=== PATIENT | female | born 1995 | race Caucasian/White ===

== ENCOUNTER 2021-07-12 15:05 | Inpatient (IN) | payer MEDICAID, SELFPAY ==
[2021-07-12] VITALS (14 sets, daily range): BP systolic 129–161; BP diastolic 75–99; PULSE 80–102; TEMP 36.7–37.2; O2SAT 98; BMI 30.9
[2021-07-12 16:12] LABS: Absolute Lymphocyte Count 0.98 X10^3/uL (0.83-4.51); Basophil# 0.04 X10^3/uL; Basophil% 0.4 % (0-1); Eosinophil# 0.03 X10^3/uL; Eosinophils% 0.3 % (0-5); Hematocrit 36.5 % (37-47); Hemoglobin 12.3 g/dL (12.0-15.0); Lymphocyte # 0.98 X10^3/ul (0.83-4.51); Mean Corp Hgb Conc 33.7 g/dL (32-36); Mean Corpuscular Hgb 29.9 pg (27.0-32.0); Mean Corpuscular Volume 88.6 fL (81-99); Mean Platelet Vol. 10.6 fl (6.2-12.0); Monocyte# 0.67 X10^3/uL; Monocyte% 7.5 % (0-10); NRBC Flagged by Analyzer 0 % (0-5); Neutrophil # 7.04 X10^3/uL (2.7-7.7); Neutrophil % 79.1 % (47-70); Platelet Count 223 K/mm3 (150-450); RBC Distribution Width CV 14.2 % (11.6-14.6); RBC Distribution Width SD 46.1 fl (35.1-43.9); Red Blood Count 4.12 M/mm3 (4.2-5.4); White Blood Count 8.9 K/mm3 (4.4-11.0)
[2021-07-12 16:44] LABS: Protein:Creat Ratio 1721 mg/g CRE (0-200)
[2021-07-12] MEDS: 0.9% Saline Lock 10 ML Syringe IV (16:46)
[2021-07-12] MEDS: Lactated Ringers 1,000 ML 50 ML IV (16:46)
[2021-07-12] MEDS: 0.9% Normal Saline Single 100 ML IV.SOLN. INTRA-UTER (17:13)
--- NOTE | 2021-07-12 17:16 | HP.PCM.OB_ITS ---
HPI - General General Date of Admission: 07/12/21 HPI Narrative KATHRIN SERVIN, is a 26 F who presents at 39w1d . Presented to office today for routine visit. BP mildly elevated at 130/95 and decision for IOL today. Asymptomatic, no signs of preeclampsia. OB history otherwise uncomplicated. Maternal Data Information ARTURO Calculator Estimated Delivery Date Method Current WG Current Estimate 07/18/21 Manual 39w 1d PFSH PFSH Home Medications ferrous sulfate 65 mg PO BID 07/12/21 [History Last Taken 07/11/21] [id number] [] 1 tab PO DAILY 07/12/21 [History Last Taken 07/11/21] Allergy/AdvReac Type Severity Reaction Status Date / Time Sulfa (Sulfonamide Allergy Hives Verified 07/12/21 15:35 Antibiotics) Social History Smoking Status: Never smoker History Elective abortions Hx Para 0 Spontaneous abortions Hx # Term Pregnancies Ectopic pregnancies Hx # Pregnancies Multiple births # of living children NST FHR Rate Baby A Baseline: 135 Variability:: Moderate Accelerations:: 15 x 15 Decelerations:: None FHR Category:: Category I Uterine Activity:: Irregular, mild ROS Constitutional Constitutional: Reports systems reviewed and no addt'l complaints, except as documented; Denies headache(s) Eyes Eyes: Denies acute decrease in peripheral vision, blurry vision or change in vision ENT HEENT: Reports systems reviewed and no addt'l complaints, except as documented Cardiovascular Cardiovascular: Denies chest pain or dizziness Respiratory/Chest Respiratory/Chest: Denies cough, dyspnea, dyspnea on exertion, shortness of breath at rest or shortness of breath with exertion Gastrointestinal Gastrointestinal: Denies abdominal pain, diarrhea, nausea or vomiting Genitourinary Genitourinary: Denies abdominal discomfort or movement Musculoskeletal Musculoskeletal: Denies limited range of motion Integumentary Integumentary: Reports systems reviewed and no addt'l complaints, except as documented Neurologic Neurologic: Reports systems reviewed and no addt'l complaints, except as documented Psychiatric Psychiatric: Reports systems reviewed and no addt'l complaints, except as documented Endocrine Endocrinology: Reports systems reviewed and no addt'l complaints, except as documented Hematologic/Lymphatic Hematologic/Lymphatic: Reports systems reviewed and no addt'l complaints, except as documented Allergic/Immunologic Allergic/Immunologic: Reports systems reviewed and no addt'l complaints, except as documented Vital Signs Vital Signs Vital Signs: 07/12/21 15:30 07/12/21 15:47 07/12/21 16:01 Temperature 98.2 F Pulse Rate 95 102 H 97 Blood Pressure 161/96 H 161/99 H 144/94 H BP Systolic 161 161 144 BP Diastolic 96 99 94 07/12/21 16:23 Temperature Pulse Rate 99 Blood Pressure 140/92 H BP Systolic 140 BP Diastolic 92 Weight Weight: 163 lb 9.328 oz Body Mass Index (BMI) 30.9 Physical Exam Const alert and oriented x3 General Appearance: cooperative Orientation / Consciousness: awake, oriented to person, oriented to place and oriented to time Exam Limitations: no limitations HEENT normocephalic Head and Scalp: normal to inspection, normocephalic and atraumatic Face and Sinus: normal facial exam Eyes General Eye: normal appearance of both eyes Neck full ROM Chest Chest: symmetrical chest wall rise Resp normal respiratory effort and normal air movement Auscultation: clear to auscultation bilaterally Cardio regular rate, regular rhythm, S1 normal heart sound, S2 normal heart sound, no m urmurs, no rub, no gallops and no clicks GI normal to inspection, nondistended, normoactive bowel sounds and non-tender appearance of the vagina normal Bladder / Kidney Exam: no CVA tenderness Manual OB Exam: estimated gestational size appropriate, presentation cephalic, dilated 1cm, effaced 50 and station -2 Back/Spine normal ROM Extremity normal to inspection and full ROM Skin no rashes or lesions noted Neuro oriented x3, CN's II-XII intact bilaterally and moves all extremities Sensorium / Orientation: awake, alert and oriented to person Motor Exam: clonus absent Deep Tendon Reflexes: Rt Patellar (L4): 2+ and Lt Patellar (L4): 2+ Labs Labs Labs: Blood Type Pending Antibody Screen Pending Hct 36.5 % (37-47) L Hgb 12.3 g/dL (12.0-15.0) GBS positive HIV negative RPR negative HepC negative HBsAG negative A negative, antibody screen negative GC/CT negative Urine tox negative
[2021-07-12 17:42] LABS: ALB/GLOB Ratio 0.5 RATIO (0.9-2.4); AST(SGOT) 22 U/L (15-37); Alanine Aminotransfer ALT/SGPT 26 U/L (13-56); Albumin, Serum 2.4 g/dL (3.2-5.0); Alkaline Phosphatase 142 U/L (45-117); Anion Gap 8 (5-15); BUN 10 mg/dL (7-18); BUN/Creat Ratio 16.7 RATIO (10-20); Calcium,Total 8.8 mg/dL (8.5-10.1); Chloride 108 mmol/L (98-107); EST Glomerular Filtration Rate 129 mL/min (>60); Est Glom Filt Rate - Afr Amer 156 mL/min (>60); Estimated Creatinine Clearance 107.22 ml/min; Globulin 4.6 g/dL (2.2-4.2); Glucose 88 mg/dL (74-106); LDH 195 U/L (84-246); Potassium 3.9 mmol/L (3.5-5.1); Sodium Level 138 mmol/L (136-145); Uric Acid 5.6 mg/dL (2.6-6.0)
[2021-07-12] MEDS: Oxytocin 30 units/NS 500 ml 30 UNITS/500 ML IV.SOLN IV (18:34)
[2021-07-12] MEDS: Penicillin G 3,000,000 Units 50 ML 100 UNITS IV (21:17)
[2021-07-12] MEDS: Lactated Ringers 500 ML 999 ML IV (23:28)
[2021-07-13] VITALS (97 sets, daily range): BP systolic 108–174; BP diastolic 58–102; PULSE 73–112; RESP 16–18; TEMP 36.6–37.4; O2SAT 79–100
[2021-07-13] MEDS: Lactated Ringers 500 ML 999 ML IV ×2 (00:21→02:34)
[2021-07-13] MEDS: Penicillin G 3,000,000 Units 50 ML 100 UNITS IV ×2 (00:59→05:05)
[2021-07-13] MEDS: fentaNYL-bupivacaine (epidural) 100 ML BAG EPIDURAL ×4 (02:11→16:38)
[2021-07-13] MEDS: Mag Hydrox/Al Hydrox/Simeth 30 ML UDC PO ×2 (03:19→19:04)
[2021-07-13] MEDS: Lactated Ringers 1,000 ML 200 ML IV ×3 (04:14→16:37)
[2021-07-13] MEDS: Acetaminophen 500 MG Tablet PO ×3 (07:27→20:53)
[2021-07-13] MEDS: Ondansetron 4 MG/2 ML Vial IV ×3 (08:26→20:24)
--- NOTE | 2021-07-13 08:42 | PCM.PN.OB ---
Subjective Subjective Patient comfortable with epidural Objective Data Objective Data Vital Signs: Vital Signs Temp Pulse BP Pulse Ox 98.8 F 84 129/85 H 96 07/13/21 07:30 07/13/21 08:22 07/13/21 08:22 07/13/21 08:22 Weight: 163 lb 9.328 oz Body Mass Index (BMI) 30.9 Intake & Output: Intake and Output for Last 24 Hours 07/11/21 07/12/21 07/13/21 23:59 23:59 23:59 Intake Total 689.04 / 689.04 2099.93 / 2099.93 Output Total 800 / 800 Balance 689.04 / 689.04 1299.93 / 1299.93 Lab / Micro Data Result Diagrams: 07/12/21 15:45 07/12/21 17:10 Labs: Laboratory Results - last 24 hr 07/12/21 15:45: WBC 8.9, RBC 4.12 L, Hgb 12.3, Hct 36.5 L, MCV 88.6, MCH 29.9, MCHC 33.7, RDW Std Deviation 46.1 H, RDW Coeff of Virgen 14.2, Plt Count 223, MPV 10.6, Immature Gran % (Auto) 1.700 H, Neut % (Auto) 79.1 H, Lymph % (Auto) 11.0 L, [place] % (Auto) 7.5, Eos % (Auto) 0.3, Baso % (Auto) 0.4, Absolute Neuts (auto) 7.0, Absolute Lymphs (auto) 0.98, Nucleated RBC % 0 07/12/21 15:45: Blood Type A NEGATIVE, Antibody Screen POSITIVE H, Antibody Identification ANTI-D 07/12/21 16:15: U Random Total Protein 69.0 H, Urine Creatinine 40.10, Protein/Creatinin Ratio 1721 H 07/12/21 17:10: Sodium 138, Potassium 3.9, Chloride 108 H, Carbon Dioxide 22.0, Anion Gap 8, BUN 10, Creatinine 0.60, Estim Creat Clear Calc 107.22, Est GFR (MDRD) Af Amer 156, Est GFR (MDRD) Non-Af 129, BUN/Creatinine Ratio 16.7, Glucose 88, Uric Acid 5.6, Calcium 8.8, Total Bilirubin 0.20, AST 22, ALT 26, Alkaline Phosphatase 142 H, Lactate Dehydrogenase 195, Total Protein 7.0, Albumin 2.4 L, Globulin 4.6 H, Albumin/Globulin Ratio 0.5 L Micro: Microbiology 07/12/21 16:05 Nasal Secretion SARS-CoV-2 Antigen (Rapid) - Final Physical Exam Narrative: Cvx - 3.5/80/-2 NST FHR Rate Baby A Baseline: 135 Variability:: Moderate Accelerations:: 15 x 15 Decelerations:: Variable Uterine Activity:: Q 2-3 minutes Assessment & Plan (1) Pre-eclampsia: QUALIFIERS: Trimester: third trimester Qualified Code(s): O14.93 - Unspecified pre-eclampsia, third trimester PLAN: Mild preeclampsia - BP's remain normal. Continue observation. AROM clear fluid. IUPC placed. Continue pitocin.
[2021-07-13] MEDS: Penicillin G 3,000,000 Units 50 ML 50 UNITS IV (08:58)
[2021-07-13] MEDS: Penicillin G 3,000,000 Units 50 ML 75 UNITS IV ×2 (12:53→16:38)
--- NOTE | 2021-07-13 19:38 | EX.PCM.OBRPT ---
Maternal Data Information ARTURO Calculator Estimated Delivery Date Method Current WG Current Estimate 07/18/21 Manual 39w 2d Vaginal Delivery Maternal Presentation Maternal Presentation: Medically Indicated Induction Type of Induction: Pitocin, Johnson Bulb and Amniotomy Medical Reason for Induction: Preeclampsia, eclampsia Operative Information Date of Procedure: 07/13/21 Pre-Operative Diagnosis: Severe preeclampsia Post-Operative Diagnosis: Same Surgery / Procedure Performed: Spontaneous Vaginal Delivery Type of Anesthesia: Epidural Drain: Johnson to straight drain Estimated Blood Loss: 500ml Findings Description of Procedure: Patient prepped & draped when C/C/+2. She pushed well to deliver the head. head gently guided to allow delivery of anterior and posterior shoulders. No excess traction placed on head. Body delivered and 3VC clamped & cut in delayed fashion. Placenta delivered with gentle traction and good uterine tone obtained. Presentation: ASHLYN Amniotic Membrane Rupture Type: Artificial Amniotic Fluid Description: Lightly stained meconium Placental Delivery Description: Expressed Placenta Disposition: [facility] Specimen(s) Removed: Placenta Cord Vessel Description: 3 Vessels Cord Entanglement: None Infant A Gender: Female ([facility]) (1 minute): 8 (5 minute): 9 Delayed Cord Clamping: Yes Post Vaginal Delivery Medications Given After Delivery: IV Pitocin and - (Rectal cytotec) Episiotomy Description: None Laceration: 2nd degree (perineal - repaired with 3-0 vicryl) Complication Complications: None
[2021-07-13] MEDS: Magnesium Sulfate 4gm/100mL 4 GM/100 ML IV.SOLN. IV (20:10)
[2021-07-13] MEDS: Magnesium Sulfate 20 GM/500 ML BAG IV (20:31)
[2021-07-13] MEDS: Oxytocin 30 units/NS 500 ml 30 UNITS/500 ML IV.SOLN 334 UNITS IV (21:22)
[2021-07-13] MEDS: miSOPROStol 200 MCG Tablet 1000 MCG RC (21:30)
[2021-07-14] VITALS (54 sets, daily range): BP systolic 122–166; BP diastolic 66–98; PULSE 86–115; RESP 16–18; TEMP 36.4–37.3; O2SAT 97–99
[2021-07-14] MEDS: Acetaminophen 500 MG Tablet 1000 MG PO ×3 (04:46→23:19)
--- NOTE | 2021-07-14 05:15 | NURSING ---
Updated provider on pt HR of 115, plan is to continue to monitor HR. Also updated provider on pt continuing diarrhea, plan is to send stool culture and give pt immodium
[2021-07-14] MEDS: Ibuprofen 600 MG Tablet PO ×2 (05:36→18:15)
[2021-07-14] MEDS: Loperamide 2 MG Capsule 4 MG PO (06:06)
[2021-07-14] MEDS: Magnesium Sulfate 20 GM/500 ML BAG IV ×2 (08:15→17:16)
--- NOTE | 2021-07-14 08:23 | PN.OBGYN_ITS ---
Subjective Subjective Patient seen at bedside. Resting quietly. Denies any headaches, visual changes or RUQ pain. with support. Magnesium sulfate running at 2gm/hr. Has had several episodes of diarrhea and will collect a stool sample to be sent. Objective Data Objective Data Vital Signs: Vital Signs Temp Pulse Resp BP Pulse Ox 97.6 F L 94 18 141/90 H 98 07/14/21 08:03 07/14/21 08:08 07/14/21 08:03 07/14/21 08:07 07/14/21 08:08 Oxygen Delivery Method Room Air Weight: 163 lb 9.328 oz Body Mass Index (BMI) 30.9 Intake & Output: Intake and Output for Last 24 Hours 07/12/21 07/13/21 07/14/21 23:59 23:59 23:59 Intake Total 689.04 / 689.04 7175.06 / 7466.73 1758.47 / 1758.47 Output Total 3300 / 3300 1250 / 1250 Balance 689.04 / 689.04 3875.06 / 4166.73 508.47 / 508.47 Lab / Micro Data Result Diagrams: 07/12/21 15:45 07/12/21 17:10 Micro: Microbiology 07/12/21 16:05 Nasal Secretion SARS-CoV-2 Antigen (Rapid) - Final ROS Eyes Eyes: Denies blurry vision, change in vision or spots in vision ENT HEENT: Denies dizziness or headache(s) Cardiovascular Cardiovascular: Denies abdominal pain, chest pain or dyspnea Respiratory/Chest Respiratory/Chest: Denies cough, dyspnea, shortness of breath at rest or eduardo rtness of breath with exertion Gastrointestinal Gastrointestinal: Denies abdominal pain, diarrhea or vomiting Genitourinary Genitourinary: Denies change in urinary stream, difficulty urinating or dysuria Musculoskeletal Musculoskeletal: Reports none Integumentary Integumentary: Denies rash Neurologic Neurologic: Denies dizziness, headache(s), memory loss or weakness Physical Exam Const alert and no apparent distress General Appearance: cooperative and comfortable Exam Limitations: no limitations HEENT normocephalic Eyes General Eye: normal appearance of both eyes Neck full ROM General: normal visual inspection Chest Chest: symmetrical chest wall rise Resp normal respiratory effort and normal air movement Effort and Inspection: symmetric chest movement Auscultation: clear to auscultation bilaterally Cardio regular rate and regular rhythm GI normal to inspection, nondistended, normoactive bowel sounds Back/Spine normal ROM Extremity full ROM and no calf tenderness General Extremity: normal exam except as noted Skin no rashes or lesions noted Neuro CN's II-XII intact bilaterally Psych mental status grossly normal Assessment & Plan (1) Pre-eclampsia: QUALIFIERS: Trimester: third trimester Qualified Code(s): O14.93 - Unspecified pre-eclampsia, third trimester (2) (spontaneous vaginal delivery): (3) Laceration, obstetrical, second degree: PLAN: PPD 1- Preeclampsia Continue Magnesium Sulfate IV 2gm/hr for 24 hours after delivery Routine care support
[2021-07-14] MEDS: Labetalol 200 MG Tablet PO (19:34)
[2021-07-14] MEDS: 0.9% Saline Lock 10 ML Syringe IV (21:21)
[2021-07-15] VITALS (12 sets, daily range): BP systolic 127–172; BP diastolic 75–96; PULSE 68–105; RESP 16–20; TEMP 36.7–37.1; O2SAT 97
[2021-07-15] MEDS: Ibuprofen 600 MG Tablet PO ×3 (04:00→22:37)
[2021-07-15] MEDS: Labetalol 200 MG Tablet PO ×3 (06:13→22:34)
[2021-07-15] MEDS: Acetaminophen 500 MG Tablet 1000 MG PO ×2 (08:30→19:07)
--- NOTE | 2021-07-15 14:34 | NURSING ---
call to eris about elevated BP's on pt. 172/96, 152/88, 147/86. pt has hx of mag sulfate. She will contact physician and call us back if any new orders.
[2021-07-15] MEDS: NIFEdipine 30 MG Tablet PO (15:37)
--- NOTE | 2021-07-15 16:36 | PCM.PN.OB ---
Subjective Subjective Patient seen at bedside. Denies headache, vision changes or RUQ pain. Blood pressures remain labile. Labetalol 200 mg PO TID started last night and Procardia 30XL QD. Objective Data Objective Data Vital Signs: Vital Signs Temp Pulse Resp BP Pulse Ox 98.8 F 68 20 H 147/86 H 97 07/15/21 13:35 07/15/21 13:54 07/15/21 13:35 07/15/21 13:54 07/15/21 01:22 Oxygen Delivery Method Room Air Weight: 163 lb 9.328 oz Body Mass Index (BMI) 30.9 Intake & Output: Intake and Output for Last 24 Hours 07/13/21 07/14/21 07/15/21 23:59 23:59 23:59 Intake Total 7175.06 / 7466.73 3457.63 / 3457.63 Output Total 3300 / 3300 5450 / 5450 800 / 800 Balance 3875.06 / 4166.73 -1992.37 / -1992.37 -800 / -800 Lab / Micro Data Result Diagrams: 07/12/21 15:45 07/12/21 17:10 Micro: Microbiology 07/12/21 16:05 Nasal Secretion SARS-CoV-2 Antigen (Rapid) - Final ROS Eyes Eyes: Denies blurry vision, change in vision or spots in vision ENT HEENT: Denies dizziness or headache(s) Cardiovascular Cardiovascular: Denies abdominal pain, chest pain or dyspnea Respiratory/Chest Respiratory/Chest: Denies cough, dyspnea, shortness of breath at rest or shortness of breath with exertion Gastrointestinal Gastrointestinal: Denies abdominal pain, diarrhea or vomiting Genitourinary Genitourinary: Denies change in urinary stream, difficulty urinating or dysuria Musculoskeletal Musculoskeletal: Reports none Integumentary Integumentary: Denies rash Neurologic Neurologic: Denies dizziness, headache(s), memory loss or weakness Physical Exam Const alert and no apparent distress General Appearance: cooperative and comfortable Exam Limitations: no limitations HEENT normocephalic Eyes General Eye: normal appearance of both eyes Neck full ROM General: normal visual inspection Chest Chest: symmetrical chest wall rise Resp normal respiratory effort and normal air movement Effort and Inspection: symmetric chest movement Auscultation: clear to auscultation bilaterally Cardio regular rate and regular rhythm GI normal to inspection, nondistended, normoactive bowel sounds Back/Spine normal ROM Extremity full ROM and no calf tenderness General Extremity: normal exam except as noted Skin no rashes or lesions noted Neuro CN's II-XII intact bilaterally Psych mental status grossly normal Assessment & Plan (1) (spontaneous vaginal delivery): (2) Laceration, obstetrical, second degree: (3) Elevated blood pressure reading: PLAN: PPD 2 Blood pressures remain labile- 130-150/ 80-90s Labetalol 200 mg PO TID Procardia 30 mg XL QD Anticipate discharge home tomorrow Dr. Schrader involved in plan of care
[2021-07-16 02:03] VITALS: BP 134/83; PULSE 85; RESP 18
[2021-07-16 02:04] VITALS: BP 134/83; PULSE 85
[2021-07-16] MEDS: Acetaminophen 500 MG Tablet 1000 MG PO (02:07)
[2021-07-16] MEDS: Labetalol 200 MG Tablet PO (06:25)
[2021-07-16] MEDS: Ibuprofen 600 MG Tablet PO (06:39)
[2021-07-16 07:41] VITALS: BP 130/82; PULSE 82; RESP 16; TEMP 36.9; O2SAT 98
[2021-07-16] MEDS: Benzocaine/Lanolin/Aloe Vera 1 SPRAY EACH TOPICAL (07:44)
--- NOTE | 2021-07-16 09:08 | PCM.PN.OB ---
Subjective Subjective Patient seen at bedside. Feeling better today. Denies headache, vision changes or RUQ pain. Desires discharge home. Has BP monitor at home and aware of ranges to notify provider. Objective Data Objective Data Vital Signs: Vital Signs Temp Pulse Resp BP Pulse Ox 98.4 F 82 16 130/82 H 98 07/16/21 07:41 07/16/21 07:41 07/16/21 07:41 07/16/21 07:41 07/16/21 07:41 Oxygen Delivery Method Room Air Weight: 163 lb 9.328 oz Body Mass Index (BMI) 30.9 Intake & Output: Intake and Output for Last 24 Hours 07/14/21 07/15/21 07/16/21 23:59 23:59 23:59 Intake Total 3457.63 / 3457.63 Output Total 5450 / 5450 800 / 800 Balance -1991.37 / -1991.37 -800 / -800 Lab / Micro Data Result Diagrams: 07/12/21 15:45 07/12/21 17:10 Micro: Microbiology 07/12/21 16:05 Nasal Secretion SARS-CoV-2 Antigen (Rapid) - Final ROS Eyes Eyes: Denies blurry vision, change in vision or spots in vision ENT HEENT: Denies dizziness or headache(s) Cardiovascular Cardiovascular: Denies abdominal pain, chest pain or dyspnea Respiratory/Chest Respiratory/Chest: Denies cough, dyspnea, shortness of breath at rest or shortness of breath with exertion Gastrointestinal Gastrointestinal: Denies abdominal pain, diarrhea or vomiting Genitourinary Genitourinary: Denies change in urinary stream, difficulty urinating or dysuria Musculoskeletal Musculoskeletal: Reports none Integumentary Integumentary: Denies rash Neurologic Neurologic: Denies dizziness, headache(s), memory loss or weakness Physical Exam Const alert and no apparent distress General Appearance: cooperative and comfortable Exam Limitations: no limitations HEENT normocephalic Eyes General Eye: normal appearance of both eyes Neck full ROM General: normal visual inspection Chest Chest: symmetrical chest wall rise Resp normal respiratory effort and normal air movement Effort and Inspection: symmetric chest movement Auscultation: clear to auscultation bilaterally Cardio regular rate and regular rhythm GI normal to inspection, nondistended, normoactive bowel sounds Back/Spine normal ROM Extremity full ROM and no calf tenderness General Extremity: normal exam except as noted Skin no rashes or lesions noted Neuro CN's II-XII intact bilaterally Psych mental status grossly normal Assessment & Plan (1) Elevated blood pressure reading: (2) Laceration, obstetrical, second degree: (3) (spontaneous vaginal delivery): PLAN: PPD 4 - Elevated BP Continue Labetalol 200 mg PO TID and Procardia 30 mg XL QD D/C home with follow up this week in office Dr. Schrader involved in plan of care
--- NOTE | 2021-07-16 09:12 | PCM.DC ---
Discharge Instructions Diet Discharge Diet: No restrictions Activity May resume sexual activity in: 6-8 weeks Weight Bearing Status: Weight bearing as tolerated Dressing / Incision Call your doctor if you observe: Fever of 101 or Higher, Inability to urinate, Using more than 1 pad per hour, Shortness of breath, Chest pain, Calf discomfort and Uncontrolled pain Follow Up Care Please Follow Up With: Dorcas Gasca MD When: Early this week for BP check Test Results: Test results from this visit will be discussed in further detail at your follow-up appointment, if applicable. Discharge Plan Admission Admit Date/Time: 07/12/21 15:05 Primary Reason for Your Visit: labor and delivery Attending Provider: Dg Kruger Instructions Patient Instructions: Controlling High Blood Pressure, : Caring for Yourself Discharge Orders/Prescriptions Prescriptions: New nifedipine 30 mg Tablet Extended Release 24hr 30 mg PO DAILY Qty: 30 RF: 0 labetalol 200 mg Tablet 200 mg PO TID Qty: 90 RF: 0 No Action 1 mg Tablet 1 tab PO DAILY RF: 0 ferrous sulfate 28 mg iron Tablet 65 mg PO BID RF: 0 Disposition Disposition (needs filled in before D/C Order can be placed): Home, Self Care
[2021-07-16] MEDS: NIFEdipine 30 MG Tablet PO (09:48)
== END 2021-07-16 10:35 | disposition home or self-care (01) | DRG 560 ==
PROVIDERS: Advanced Practice Midwife; Admitting Provider Obstetrics & Gynecology; Visit Provider Obstetrics & Gynecology
DX: O14.04 Mild to moderate pre-eclampsia, complicating childbirth (principal); O77.0 Labor and delivery complicated by meconium in amniotic fluid; O70.1 Second degree perineal laceration during delivery; Z88.2 Allergy status to sulfonamides; Z37.0 Single live birth; Z3A.39 39 weeks gestation of pregnancy
CPT/HCPCS: 59025; 59050; 80053; 82570; 83615; 84156; 84550; 85025; 85461; 86850; 86870; 86900; 86901; 87426; 90384; 99218; J7120; A4216; G0378; J2405; J2790

== ENCOUNTER 2022-11-23 07:08 | Inpatient (IN) | payer MEDICAID, SELFPAY ==
[2022-11-23] VITALS (52 sets, daily range): BP systolic 100–131; BP diastolic 62–82; PULSE 78–104; RESP 16; TEMP 36.3–37.3; O2SAT 96–99; BMI 31.5
[2022-11-23] MEDS: Lactated Ringers 1,000 ML 50 ML IV (07:15)
--- NOTE | 2022-11-23 07:33 | PCM.HP.OB ---
HPI - General General Date of Admission: 11/23/22 Date of Service: 11/23/22 Chief Complaint: labor HPI Narrative KATHRIN SERVIN, is a 27 F at 39w0d who presents in labor at 5 cm dilated with BBOW. No vb or lof. Good FM. She offers no complaints. Maternal Data Information ARTURO Calculator Estimated Delivery Date Method Current WG Current Estimate 07/18/21 Manual 110w 3d PFSH PFS Medical History (Updated 11/23/22 @ 07:[address] Caity Howard, DO) MRSA infection depression Pre-eclampsia Home Medications ienitoqs-yjh-Rz-FA 1 mg tablet 1 tab PO DAILY 07/12/21 [History Last Taken 11/22/22] aspirin 81 mg chewable tablet 81 mg PO DAILY pree' 11/23/22 [History Last Taken 11/22/22] Allergy/AdvReac Type Severity Reaction Status Date / Time Sulfa (Sulfonamide Allergy Hives Verified 07/12/21 15:35 Antibiotics) Social History Smoking Status: Never smoker History Elective abortions Hx Para 1 Spontaneous abortions Hx # Term Pregnancies Ectopic pregnancies Hx # Pregnancies Multiple births # of living children NST FHR Rate Baby A Baseline: 145 Variability:: Moderate Accelerations:: 15 x 15 Decelerations:: None NST Reactive:: Yes FHR Category:: Category I Uterine Activity:: Ctx q 4 Vital Signs Vital Signs Vital Signs: 11/23/22 07:24 11/23/22 07:24 11/23/22 07:26 Temperature Temperature Source Pulse Rate 93 96 Blood Pressure 122/76 H BP Systolic 122 BP Diastolic 76 Pulse Ox 11/23/22 07:26 11/23/22 07:24 11/23/22 07:24 Temperature 98.3 F Temperature Source Temporal Pulse Rate Blood Pressure BP Systolic BP Diastolic Pulse Ox 97 Weight Weight: 167 lb Body Mass Index (BMI) 31.5 Labs Labs Labs: Blood Type A NEGATIVE Antibody Screen POSITIVE H Hct 36.5 % (37-47) L Hgb 12.3 g/dL (12.0-15.0) Rhogam given: Yes Assessment & Plan (1) 39 weeks gestation of : PLAN: Admit for routine intrapartum care. GBS positive- start PCN. Estimated weight expected to be < 4500 g and pelvis adequate. Anticipate vaginal delivery. Oncoming call team notified of admission and will take over care. (2) Multiparous: (3) History of pre-eclampsia: PLAN: Monitor BP's. Was on baby ASA during . (4) Rh negative status during : PLAN: Rhogam candidate. (5) Short interval between pregnancies affecting , antepartum: (6) Positive GBS test: PLAN: PCN. (7) History of depression: PLAN: Per chart review, pt desires to start Zoloft .
[2022-11-23 07:43] LABS: Absolute Lymphocyte Count 1.51 X10^3/uL (0.83-4.51); Absolute Neutrophil Count 11.9 X10^3/uL (2.0-7.7); Basophil# 0.04 X10^3/uL; Basophil% 0.3 % (0-1); Eosinophil# 0.05 X10^3/uL; Eosinophils% 0.3 % (0-5); Hematocrit 39.3 % (37-47); Hemoglobin 13.1 g/dL (12.0-15.0); Lymphocyte # 1.51 X10^3/ul (0.83-4.51); Lymphocyte % 10.5 % (19-41); Mean Corp Hgb Conc 33.3 g/dL (32-36); Mean Corpuscular Hgb 28.5 pg (27.0-32.0); Mean Corpuscular Volume 85.6 fL (81-99); Monocyte# 0.74 X10^3/uL; Monocyte% 5.2 % (0-10); NRBC Flagged by Analyzer 0 % (0-5); Neutrophil # 11.87 X10^3/uL (2.7-7.7); Neutrophil % 82.9 % (47-70); Platelet Count 227 K/mm3 (150-450); RBC Distribution Width CV 14.9 % (11.6-14.6); RBC Distribution Width SD 46.5 fl (35.1-43.9); Red Blood Count 4.59 M/mm3 (4.2-5.4); White Blood Count 14.3 K/mm3 (4.4-11.0)
[2022-11-23] MEDS: fentaNYL-bupivacaine (epidural) 100 ML BAG EPIDURAL (09:00)
[2022-11-23] MEDS: Oxytocin 10 UNITS/ML Vial IM (10:28)
--- NOTE | 2022-11-23 10:59 | EX.PCM.OBRPT ---
Assessment & Plan (1) Rh negative status during : (2) (spontaneous vaginal delivery): (3) Spontaneous rupture of amniotic membranes: (4) Laceration, obstetrical, second degree: (5) Positive GBS test: (6) History of depression: Maternal Data Information ARTURO Calculator Estimated Delivery Date Method Current WG Current Estimate 11/30/22 Manual 39w 0d Vaginal Delivery Maternal Presentation Maternal Presentation: Active Labor Maternal Presentation: at 39 weeks gestation that presented in spontaneous labor. Operative Information Date of Procedure: 11/23/22 Pre-Operative Diagnosis: Term gestation, Spontaneous onset of labor Post-Operative Diagnosis: , live female Surgery / Procedure Performed: Spontaneous Vaginal Delivery Type of Anesthesia: Epidural Drain: - (Straight cath x 1) Estimated Blood Loss: 400 Time of Delivery: 10:24 Findings Description of Procedure: Called to patient's room for complete dilation. With first push and minimal maternal effort, head delivered followed immediately by anterior shoulder and remainder of body. Vigorous female placed on maternal abdomen and attended to by nursing staff. Pitocin IM given due to patient being low risk. 3 vessel cord clamped and cut by FOB after delayed cord clamping. Cord blood collected and sent. Bladder drained with red sofia catheter. Placenta delivered spontaneously and intact. Second degree laceration repaired in usual fashion with Vicryl 3-0 Rapid. Hemostasis obtained. Fundus firm 2 below U. EBL 400 cc. APGARS 9/9. Patient and bonding well at this time. Dr. Gasca notified of delivery. Presentation: Vertex Amniotic Membrane Rupture Type: Spontaneous Time of Membrane Rupture: 1000 Amniotic Fluid Description: Moderate meconium Placental Delivery Description: Spontaneous Placenta Disposition: [facility] Cord Vessel Description: 3 Vessels Cord Entanglement: None Infant A Gender: Female (1 minute): 9 (5 minute): 9 Delayed Cord Clamping: Yes Post Vaginal Delivery Medications Given After Delivery: - (IM Pitocin) Episiotomy Description: None Laceration: 2nd degree Complication Complications: None
[2022-11-23] MEDS: Naproxen 500 MG Tablet PO (13:21)
[2022-11-23] MEDS: Acetaminophen 500 MG Tablet 1000 MG PO (17:57)
[2022-11-23] MEDS: Sertraline 50 MG Tablet 25 MG PO (17:58)
[2022-11-24] VITALS (7 sets, daily range): BP systolic 116–129; BP diastolic 65–76; PULSE 75–85; RESP 16; TEMP 36.6–36.8; O2SAT 98
[2022-11-24] MEDS: Naproxen 500 MG Tablet PO ×2 (00:27→10:14)
--- NOTE | 2022-11-24 09:05 | CASEMGMT ---
?SW Note Referral Source: RN WP Referral Reason: History of PPD, on Zoloft SW met with MOB in the room. FOB was also present. MOB was feeding the nb. MOB was bright and reactive. MOB was appropriately bonding with the nb. MOB reports she is hopeful for discharge today. MOB gave permission for this health science writer to speak to her in the presence of the FOB. Mom: Marleen PNC: ESMER Morton Control: Vasectomy Baby: Gurpreet Murillo : 11/23/2022 Apgars: 9/9 Weight: 6 # 13 ounces Forming Roll Operator: Charly AMAYA reports that breast feeding is going well. MOB' other children: Brennan, age 16 months Housing: MOB, FOB and their children reside in a house. The report adequate room and space. Transportation: Patient reports that she has access to transportation. Supplies: MOB reports she has all the nb supplies including car seat, bassinette, clothes and diapers. Support: ?MOB reports she will have lots of help at discharge. MOB reports the FOB, and his parents will be a support. FOB?s parents live locally. MOB said that they also have friends who are supportive. Education Level: MOB graduated high school. NO learning issues Employment: MOB reports that she is not currently going to work outside the home. 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 MOB said that she will be staying home ?for a little while?. Agency Involvement: MONIQUE has [employer] insurance. MOB does not have any services from [facility] or [facility] or [facility]. MOB is open to information on [facility]. MOB reports no legal or CSB issues. MOB said that she previously went to counseling at [facility] for the one-month period after her daughter?s as she had depression for one month and ?I couldn?t stop crying?. Patient went to counseling for post- and began to take Zoloft for the PPD symptoms. FOB: Lewis Mancera Time Together: 4 ? years Involved at : Yes Employment: [employer]. FOB reports he will take off work ?whenever?. FOB reports that he will have the next month off as they are not working Other Children: Antongirishbeatrice with MONIQUE FOB MH/ AOD/DV: Denied by FOB Maternal MH History: MOB reports that after her daughter?s , she had post depression. MONIQUE went to counseling at [facility] as ?I couldn?t stop crying?. MONIQUE said that she called her OB, and the OB told her to ?come in in one hour? and patient was prescribed Zoloft. MOB said that the Zoloft work well. MOB has resumed Zoloft. MOB reports her OB has prescribed the Zoloft. MOB denied any current SI or HI. MONIQUE said that during her post- period she was not suicidal but ?overwhelmed ?and felt ?despair?. MONIQUE reports Zoloft works well and thus she has resumed the medication. MONIQUE has reached out for support from counselor in the past, as well as her OB so this health science writer feels that if MONIQUE has any issues that she will again reach out to providers. MOB and FOB were educated on Shaken Baby Syndrome, PPD and Safe Sleeping. MOB reports no alcohol or drug use. MONIQUE is not a smoker SW spoke with LINO Wilcox. Jeri HUYNH has no concerns regarding patient. Plan: Home at discharge Debbi POSADAS
--- NOTE | 2022-11-24 11:09 | PCM.PN.OB ---
Subjective Subjective Patient seen at bedside. Feeling good. Denies any pain. with minimal support. Ambulating and voiding without difficulty. Lochia decreasing. Desires discharge home today. Objective Data Objective Data Vital Signs: Vital Signs Temp Pulse Resp BP Pulse Ox O2 Del Method 98 F 85 16 121/75 H 97 Room Air 11/24/22 08:12 11/24/22 08:12 11/24/22 08:12 11/24/22 08:12 11/23/22 12:52 11/24/22 08:12 Oxygen Delivery Method Room Air Weight: 167 lb Body Mass Index (BMI) 31.5 Intake & Output: Intake and Output for Last 24 Hours 11/22/22 11/23/22 11/24/22 23:59 23:59 23:59 Intake Total 1353.50 / 1353.50 Output Total 700 / 700 Balance 653.50 / 653.50 Lab / Micro Data Result Diagrams: 11/23/22 07:15 Labs: Laboratory Results - last 24 hr 11/23/22 16:10: Screen NEGATIVE, Baby's Blood Type O POSITIVE, Baby's LOS NEGATIVE ROS Eyes Eyes: Denies blurry vision, change in vision or spots in vision ENT HEENT: Denies dizziness or headache(s) Cardiovascular Cardiovascular: Denies abdominal pain, chest pain or dyspnea Respiratory/Chest Respiratory/Chest: Denies cough, dyspnea, shortness of breath at rest or shortness of breath with exertion Gastrointestinal Gastrointestinal: Denies abdominal pain, diarrhea or vomiting Genitourinary Genitourinary: Denies change in urinary stream, difficulty urinating or dysuria Musculoskeletal Musculoskeletal: Reports none Integumentary Integumentary: Denies rash Neurologic Neurologic: Denies dizziness, headache(s), memory loss or weakness Physical Exam Const alert and no apparent distress General Appearance: cooperative and comfortable Exam Limitations: no limitations HEENT normocephalic Eyes General Eye: normal appearance of both eyes Neck full ROM General: normal visual inspection Chest Chest: symmetrical chest wall rise Resp normal respiratory effort and normal air movement Effort and Inspection: symmetric chest movement Auscultation: clear to auscultation bilaterally Cardio regular rate and regular rhythm GI normal to inspection, nondistended, normoactive bowel sounds Back/Spine normal ROM Extremity full ROM and no calf tenderness General Extremity: normal exam except as noted Skin no rashes or lesions noted Neuro CN's II-XII intact bilaterally Psych mental status grossly normal Assessment & Plan (1) Laceration, obstetrical, second degree: (2) (spontaneous vaginal delivery): (3) History of depression: (4) Positive GBS test: PLAN: Plan PPD 1 GBS positive- delivered prior to complete treatment support Routine care D/C home with follow up in office
--- NOTE | 2022-11-24 11:13 | DCINST_ITS ---
Discharge Instructions Diet Discharge Diet: No restrictions Activity Discharge Activity: Return to Normal Activity, May Shower and May Take a Tub Bath May resume sexual activity in: 4-6 weeks Weight Bearing Status: Weight bearing as tolerated Dressing / Incision Call your doctor if you observe: Inability to urinate, Using more than 1 pad per hour, Shortness of breath, Dizziness, Swelling in the ankles, Chest pain, Calf discomfort and Uncontrolled pain Follow Up Care When: Within 10 days Test Results: Test results from this visit will be discussed in further detail at your follow- up appointment, if applicable. Discharge Plan Admission Admit Date/Time: 11/23/22 07:08 Primary Reason for Your Visit: Labor and Delivery Attending Provider: Caity Howard Primary Care Provider: Care Physician,Shannon Primary Discharge Orders/Prescriptions Prescriptions: New sertraline 50 mg Tablet 50 mg PO DAILY 30 Days Qty: 30 2RF Continued obzztosc-ldy-Ow-FA 1 mg Tablet 1 tab PO DAILY Discontinued aspirin [Baby Aspirin] 81 mg Tablet,Chewable 81 mg PO DAILY Referrals / Follow Up: Care Physician,No Primary [Primary Care Provider] - Disposition Disposition (needs filled in before D/C Order can be placed): Home, Self Care
[2022-11-24] MEDS: Acetaminophen 500 MG Tablet 1000 MG PO (11:31)
--- NOTE | 2022-11-24 14:30 | NURSING ---
Report given to David Oneal RN who will assume care of this patient at this time.
== END 2022-11-24 17:45 | disposition home or self-care (01) | DRG 560 ==
LOC: WPOUT 07:12 → WP 07:12
PROVIDERS: Admitting Provider Obstetrics & Gynecology; Referring Provider Obstetrics & Gynecology; Visit Provider Obstetrics & Gynecology
DX: O99.824 Streptococcus B carrier state complicating childbirth (principal); Z37.0 Single live birth; B95.1 Streptococcus, group B, as the cause of diseases classified elsewhere; O70.1 Second degree perineal laceration during delivery; Z79.82 Long term (current) use of aspirin; Z3A.39 39 weeks gestation of pregnancy; Z64.1 Problems related to multiparity; Z67.91 Unspecified blood type, Rh negative
CPT/HCPCS: 59025; 59050; 85025; 85461; 86850; 86900; 86901; 99221; J7120; G0378; J2790